=== PATIENT | female | born 1950 | race Caucasian/White ===

== ENCOUNTER → 2017-08-28 | Outpatient (CLI) | payer OTHER | LOC: RAD 14:13 | DX: Z12.31 Encounter for screening mammogram for malignant neoplasm of breast (principal) ==

== ENCOUNTER → 2018-11-13 | Outpatient (CLI) | payer OTHER, MEDICARE | LOC: RAD 15:21 | DX: Z12.31 Encounter for screening mammogram for malignant neoplasm of breast (principal) ==

== ENCOUNTER → 2020-01-09 | Outpatient (CLI) | payer OTHER, MEDICARE | LOC: RAD 09:35 | DX: Z12.31 Encounter for screening mammogram for malignant neoplasm of breast (principal) ==

== ENCOUNTER → 2020-04-23 | Outpatient (CLI) | payer OTHER, MEDICARE ==
[~2020-04-23] VITALS: Ht 162.6 cm; Wt 71.7 kg
[~2020-04-23] MED LIST: GLUCOSAMINE &1 EACH PO; MULTIVITAMINS PO; OMEPRAZOLE 20 M20 M1 PO; STOOL SOFTENER100 M1 PO; VITAMIN D3125 MC1 PO
--- NOTE | 2020-04-28 08:17 | P ---
[facility] [place] [address] PROCEDURE REPORT Name: SINDI STILL [id number] Admission: 04/23/20 Attend Phys: Ritesh Cloin Discharge: Date of : 54 Report #: [id number] THIS REPORT FOR: cc: Hannah Berry MD,Ritesh Medina MD, MD ~ CC: Ritesh Mcmillan DATE OF SERVICE: 04/23/2020 PROCEDURE PERFORMED: Colonoscopy. HISTORY OF PRESENT ILLNESS: The patient is a 70-year-old female who underwent a colonoscopy in 2014 in which adenomatous polyp was removed. She also has a history of a sarcoma, requiring surgery of the abdomen, in which she states a partial small bowel resection was performed. This was in 2019 and has reportedly been in remission since that time. There is no family history of colon cancer. The patient denies any symptoms at this time. DESCRIPTION OF PROCEDURE: The risks and benefits of the procedure were explained to the patient, those risks including but not limited to bleeding, perforation and the risk of sedation. She understood these risks and gave informed consent. Sedation was given using propofol per Anesthesia. Next, a digital rectal exam was initially performed, which was normal. Next, using a standard Olympus colonoscope, the scope was placed in the patient's anus and advanced under direct vision into the right colon, at which point there was a surgical anastomosis consistent with a right hemicolectomy. The anastomosis was well healed and widely patent. The terminal ileum was intubated and normal. The remaining transverse, descending, sigmoid colon had multiple diverticula scattered throughout. No evidence of inflammation, otherwise normal. The rectal mucosa was normal. On retroflexion, small nonbleeding internal hemorrhoids were noted. The scope was then withdrawn and the procedure terminated. The patient tolerated the procedure well. IMPRESSION: 1. Pandiverticulosis. 2. Surgical changes consistent with right hemicolectomy. 3. Small internal hemorrhoids. 4. Otherwise, normal colonoscopy. RECOMMENDATIONS: Repeat colonoscopy in 10 years. [facility] [address] [place] [address] PROCEDURE REPORT Name: STILLSINDI Room #: REG [facility] Verito#: [id number] Admission: 04/23/20 Attend Phys: Ritesh Colin Discharge: Date of : 54 Report #: [id number] Thank you for allowing me to participate in her care. <ELECTRONICALLY SIGNED> By: Ritesh Whiteside MD 04/28/20 0817 [id number] Ritesh Whiteside MD /nt
== END | disposition home or self-care (01) ==
LOC: GI 07:26 → LAB 09:42 → GI 14:09
PROVIDERS: ATTEND Specialist
DX: Z12.11 Encounter for screening for malignant neoplasm of colon (principal); Z85.038 Personal history of other malignant neoplasm of large intestine; Z86.010 Personal history of colon polyps; K57.30 Diverticulosis of large intestine without perforation or abscess without bleeding; K64.8 Other hemorrhoids; K21.9 Gastro-esophageal reflux disease without esophagitis; Z98.890 Other specified postprocedural states; Z79.899 Other long term (current) drug therapy; Z90.49 Acquired absence of other specified parts of digestive tract; Z11.59 Encounter for screening for other viral diseases; Z87.891 Personal history of nicotine dependence; Z98.0 Intestinal bypass and anastomosis status; Z90.5 Acquired absence of kidney
CPT/HCPCS: 62110; 62900

== ENCOUNTER → 2021-01-10 | Outpatient (CLI) | payer OTHER, MEDICARE | LOC: BC 08:56 | PROVIDERS: ATTEND Obstetrics & Gynecology | DX: Z12.31 Encounter for screening mammogram for malignant neoplasm of breast (principal); N64.89 Other specified disorders of breast ==